=== PATIENT | male | born 1995 | race Caucasian/White ===

== ENCOUNTER 2023-05-10 14:23 | Outpatient (AMB) | payer OTHER, SELFPAY ==
--- NOTE | 2023-05-10 14:29 | MHC.PC.OV ---
Vital Signs 05/10/23 14:30 Height 6 ft 1 in Weight 154 lb 4 oz BMI 20.3 BP 108/60 Blood Pressure Location Rt brachial Position Sitting Pulse 80 Pulse Source Pulse Oximeter Pulse Oximetry (%) 98 Oxygen Delivery Method Room Air Intake Visit Reasons: Est Care Intake Note: Pt is here to est care Allergies No Known Allergies Allergy (Verified 05/10/23 14:44) Medication List - Last Reconciled 05/10/23 by MINDY Bhardwaj No Known Home Meds Tobacco use date assessed: 05/10/23 Dental Screening Dental Screen Date: 05/10/23 Did you have a dental visit in the last 12 months?: Yes Did you have a dental problem in the last 6 months where you did not have access to dental care?: No Was dental information given to patient?: Patient has dentist HPI HPI Comments History of Present Illness Details Patient is a 27-year-old male who I am meeting for the 1st time. Patient has signed a release to get records from materials management manager. His last Tdap was 11/06. Patient has complaint of intermittent insomnia over the past year. Patient states that he works the restaurant shift supervisor for a [employer] and often has difficulty getting to sleep and staying asleep. States that he does have some anxiety but feels right now is under control. Denies SI/HI. Will give patient hydroxyzine to try when he is not working the following day. Will draw fasting labs. PFSH Family History Father Congestive heart failure Social History Housing: House Patient Tobacco Use Status: Former Tobacco user e-Cigarette/Vaping Use: Currently Using Second Hand Smoke Exposure: No service: No Current occupational status: employed Current occupation: [employer] Current occupational exposures/hazards: Yes Cognitive needs: No Hearing needs: No Vision needs: No Questionnaire PHQ-9 Over the last 2 weeks, how often have you been bothered by any of the following problems? 1. Little interest or pleasure in doing things: several days 2. Feeling down, depressed, or hopeless: several days 3. Trouble falling or staying asleep, or sleeping too much: more than half the days 4. Feeling tired or having little energy: several days 5. Poor appetite or overeating: several days 6. Feeling bad about yourself - or that you are a failure or have let yourself or your family down: not at all 7. Trouble concentrating on things, such as reading the newspaper or watching television: not at all 8. Moving or speaking so slowly that other people could have noticed. Or the opposite - being so fidgety or restless that you have been moving around a lot more than usual: not at all 9. Thoughts that you would be better off or of hurting yourself in some way: not at all Total score: 6 Depression Screening Interpretation: Negative Depression Screening Done: Yes Source: Developed by Drs. Sarkis Metz, Lata Phan, Cal Dang and colleagues, with an educational dominguez from [employer]. Thrive Questionnaire Date Thrive assessed: 05/10/23 I am a: Patient What is your living situation today?: I have a steady place to live Within the past 12 months, did the food you bought not last and you didn't have the money to get more?: Never true Within the past 12 months, did you worry whether your food would run out before you got money to buy more?: Never true Do you have trouble paying for medicines?: No Do you have trouble getting transportation to medical appointments?: No Do you have trouble paying your heating and electricity bill?: No Do you have trouble taking care of your child, family member or friend?: No Do you have trouble with day-to-day activities such as bathing, preparing meals, shopping, managing finances, etc.?: No Are you currently unemployed and looking for a job?: No Are you interested in more education?: Yes THRIVE Score: 0 AUDIT C Alcohol Use Questionnaire (AUDIT-C) 1. How often do you have a drink containing alcohol?: 2-3 times a week 2. How many drinks containing alcohol do you have on a typical day when you are drinking?: 3 or 4 3. How often do you have six or more drinks on one occasion?: Less than monthly Total Score: 5 FLEX-7 AMB Questionnaire FLEX-7 Date FLEX - 7 assessed: 05/10/23 Feeling nervous, anxious, or on edge: 1 = Several days Not being able to stop or control worryin = Not at all Worrying too much about different things: 0 = Not at all Trouble relaxin = More than half the days Being so restless that it is hard to sit still: 0 = Not at all Becoming easily annoyed or irritable: 1 = Several days Feeling afraid as if something awful might happen: 0 = Not at all Total FLEX-7 score (0-4 normal; 5-9 mild; 10-14 moderate; 15-21 severe): 4 Source: Developed by Drs. Sarkis Metz, Lata Phan, Cal Dang and colleagues, with an educational dominguez from [employer]. FLEX-7 Assessment Billing FLEX-7 Assessment Tool: FLEX-7 Assessment 08515 Review of Systems Const Details: Constitutional : No Weight loss, No Fever, No Chills, No Fatigue, No Malaise ENT/Mouth : No sore throat, No Rhinorrhea Eyes: No Eye Pain, No Swelling, No Redness Cardiovascular : No Chest Pain, No SOB, No Dyspnea on Exertion, No Orthopnea, No Edema, No Palpitations Respiratory : No Cough, No Sputum, No Wheezing Gastrointestinal : No Nausea, No Vomiting, No Diarrhea, No Constipation, No abdominal Pain, No Hematochezia, No Melena Genitourinary : No Dysuria, No Urinary Frequency, No Hematuria, Musculoskeletal : No joint pain, No Myalgias, No Joint Swelling Skin : No Skin Lesions, No rash Neuro : No Weakness, No Numbness, No Dizziness, No Headache. Admits some insomnia. Psych : Admits little Anxiety/Panic, No Depression Heme/Lymph: No Bruising, No Bleeding,No Lymphadenopathy Endocrine : No Polyuria, No Polydipsia All other systems reviewed and are negative Physical exam (Primary Care) Vital Signs: Last Vital Signs Pulse 80 05/10/23 14:30 BP 108/60 05/10/23 14:30 Pulse Ox 98 05/10/23 14:30 Oxygen Delivery Method Room Air 05/10/23 14:30 Care Plan Goal for BP management: Vital signs reviewed stable. BMI result Body Mass Index 20.3 Tobacco/Smoking Status: Tobacco use Status Tobacco use date assessed 05/10/23 05/10/23 14:36 Patient Tobacco Use Status Former Tobacco user 05/10/23 14:36 e-Cigarette/Vaping Use Currently Using 05/10/23 14:36 Depression Screening Interpretation: Negative Const Other: Appearance: Alert.? Oriented X3.? No acute distress.? Head: Normocephalic, atraumatic, no step-offs or deformities Eyes: Pupils equal, round and reactive to light.? ENT: Pharynx normal.? Neck: Normal inspection.? Neck supple.? CVS: Normal heart rate and rhythm.? Pulses normal.? Respiratory: No respiratory distress.? Breath sounds normal.? Neuro: Oriented X 3.? No motor deficit.? No sensory deficit. CN 2-12 intact Assessment and Plan Assessment & Plan (1) Insomnia: Comment: Patient will be given hydroxyzine to be taken as directed Code(s): G47.00 - Insomnia, unspecified Qualifiers: Insomnia type: unspecified Qualified Code(s): G47.00 - Insomnia, unspecified Plan: Take your medications as prescribed. If you were prescribed antibiotics today, it is important that you take your medication to their entirety, do not skip any doses, do not finish them early. Follow-up with your primary care provider this week. Return to the emergency department with new or worsening symptoms. Such as fevers, chills, chest pain, shortness of breath, nausea, vomiting, dizziness, headache, vision changes, lethargy In case of emergency call 911 Plan Draw fasting labs and follow-up in 4 months. For physical exam Orders: Orders Comprehensive Met. Panel Today Z91.89 - Other specified personal risk factors, not elsewhere classified Vitamin D 25-OH (D2 and D3) Today Z13.21 - Encounter for screening for nutritional disorder TSH reflex Free T4 Today Z13.29 - Encounter for screening for other suspected endocrine disorder Lipid Panel Today Z13.220 - Encounter for screening for lipoid disorders Complete Blood Count Auto Diff Today Z13.0 - Encounter for screening for diseases of the blood and blood-forming organs and certain disorders involving the immune mechanism Vitamin B6 Today Z13.21 - Encounter for screening for nutritional disorder Vitamin B12 Today Z13.21 - Encounter for screening for nutritional disorder UA CC w/rflx Micro + Cult Today Z13.89 - Encounter for screening for other disorder Medications: New hydroxyzine HCl 10 mg PO BEDTIME PRN 20 tabs 0RF insomnia Coding Level of Care Code New Pt Level 3 (41581) Diagnoses Insomnia, unspecified type G47.00 Insomnia type: unspecified Additional Codes FLEX-7 Assessment Billing - FLEX-7 Assessment Tool: FLEX-7 Assessment 11665 ([id number]) Time Spent (min) 25
[2023-05-10 14:30] VITALS: BP 108/60; PULSE 80; O2SAT 98; BMI 20.3
== END 2023-05-10 15:57 | disposition home or self-care (01) ==
PROVIDERS: Visit Provider Nurse Practitioner Primary Care
DX: G47.00 Insomnia, unspecified (principal)
CPT/HCPCS: 99203

== ENCOUNTER 2023-11-29 08:08 | Outpatient (AMB) | payer OTHER, SELFPAY ==
--- NOTE | 2023-11-29 08:09 | A.OFFPC_ITS ---
Vital Signs 11/29/23 08:10 Height 6 ft 1 in Weight 153 lb BMI 20.2 BP 120/70 Blood Pressure Location Rt brachial Position Sitting Pulse 70 Pulse Source Pulse Oximeter Pulse Oximetry (%) 99 Intake Visit Reasons: PE transfer of care from [facility] Intake Note: pt is here for est care, transfer from [facility] Harvest Supervisor Required: No Allergies No Known Allergies Allergy (Verified 11/29/23 08:10) Medication List - Last Reconciled 11/29/23 by MICHELLE Muse No Known Home Meds Tobacco use date assessed: 05/10/23 Dental Screening Dental Screen Date: 05/10/23 HPI PE transfer of care from [facility] HPI Details Pt is here for a PE. Will order labs. [facility] Surgical History No pertinent past surgical history Family History Father Congestive heart failure Social History Housing: House Patient Tobacco Use Status: Former Tobacco user e-Cigarette/Vaping Use: Currently Using Second Hand Smoke Exposure: No service: No Current occupational status: employed Current occupation: [employer] Current occupational exposures/hazards: Yes Cognitive needs: No Hearing needs: No Vision needs: No Questionnaire PHQ-9 Over the last 2 weeks, how often have you been bothered by any of the following problems? 1. Little interest or pleasure in doing things: more than half the days 2. Feeling down, depressed, or hopeless: several days 3. Trouble falling or staying asleep, or sleeping too much: several days 4. Feeling tired or having little energy: more than half the days 5. Poor appetite or overeating: not at all 6. Feeling bad about yourself - or that you are a failure or have let yourself or your family down: not at all 7. Trouble concentrating on things, such as reading the newspaper or watching television: not at all 8. Moving or speaking so slowly that other people could have noticed. Or the opposite - being so fidgety or restless that you have been moving around a lot more than usual: not at all 9. Thoughts that you would be better off or of hurting yourself in some way: not at all Total score: 6 Depression Screening Interpretation: Negative Depression Screening Done: Yes [id number] - PHQ-9 Billing: Yes Source: Developed by Drs. Sarkis Metz, Lata Phan, Cal Dang and colleagues, with an educational dominguez from [employer]. Thrive Questionnaire Date Thrive assessed: 11/29/23 I am a: Patient What is your living situation today?: I have a steady place to live Within the past 12 months, did the food you bought not last and you didn't have the money to get more?: Never true Within the past 12 months, did you worry whether your food would run out before you got money to buy more?: Never true Do you have trouble paying for medicines?: No Do you have trouble getting transportation to medical appointments?: No Do you have trouble paying your heating and electricity bill?: No Do you have trouble taking care of your child, family member or friend?: No Do you have trouble with day-to-day activities such as bathing, preparing meals, shopping, managing finances, etc.?: Yes Are you interested in more education?: Yes Please select the resources that you would like help with: None Currently or been in a relationship where the following occur: I choose not to answer THRIVE Score: 0 AUDIT C Alcohol Use Questionnaire (AUDIT-C) 1. How often do you have a drink containing alcohol?: 2-3 times a week 2. How many drinks containing alcohol do you have on a typical day when you are drinking?: 3 or 4 3. How often do you have six or more drinks on one occasion?: Monthly Total Score: 6 Score Reviewed/Action Taken: Yes FLEX-7 AMB Questionnaire FLEX-7 Date FLEX - 7 assessed: 11/29/23 Feeling nervous, anxious, or on edge: 1 = Several days Not being able to stop or control worryin = More than half the days Worrying too much about different things: 2 = More than half the days Trouble relaxin = More than half the days Being so restless that it is hard to sit still: 2 = More than half the days Becoming easily annoyed or irritable: 1 = Several days Feeling afraid as if something awful might happen: 0 = Not at all Total FLEX-7 score (0-4 normal; 5-9 mild; 10-14 moderate; 15-21 severe): 10 Source: Developed by Drs. Sarkis Metz, Lata Phan, Cal Dang and colleagues, with an educational dominguez from [employer]. FLEX-7 Assessment Billing FLEX-7 Assessment Tool: FLEX-7 Assessment 78803 Review of Systems Const Denies chills and Denies fever(s) Eyes Denies blurry vision ENT Denies vertigo, Denies dizziness and Denies sore throat Card Denies chest pain at rest, Denies chest pain with activity, Denies diaphoresis, Denies dyspnea and Denies dyspnea on exertion Resp Denies cough, Denies dyspnea, Denies dyspnea on exertion and Denies wheezing GI Denies abdominal pain, Denies melena, Denies hematochezia, Denies constipation, Denies diarrhea and Denies loose stools Denies hematuria Musc Denies numbness and Denies tingling Skin/Breast Denies lesions Neuro Denies vertigo, Denies dizziness, Denies numbness and Denies tingling Psych Denies anxiety, Denies depression, Denies homicidal ideation, Denies suicidal ideation and Denies other (substance abuse) Aller/Immun Denies wheezing Physical exam (Primary Care) Vital Signs: Last Vital Signs Pulse 70 11/29/23 08:10 BP 120/70 11/29/23 08:10 Pulse Ox 99 11/29/23 08:10 BMI result Body Mass Index 20.2 Tobacco/Smoking Status: Tobacco use Status Tobacco use date assessed 05/10/23 11/29/23 08:14 Patient Tobacco Use Status Former Tobacco user 11/29/23 08:14 e-Cigarette/Vaping Use Currently Using 11/29/23 08:14 PHQ-9: PHQ-9 Score PHQ-9: Total score 6 11/29/23 08:14 Depression Screening Interpretation: Negative Thrive Assessment: Date of Thrive Assessment Date Thrive assessed 11/29/23 11/29/23 08:14 Currently or been in a relationship where the following occur: I choose not to answer Const General: cooperative Nutritional Appearance: well nourished Orientation/consciousness: patient oriented x3 HENMT Head: Yes normal to inspection, Yes normocephalic and Yes atraumatic Ears: TM's normal bilaterally Eyes General: appearance normal, both eyes and all related structures Alignment and Position: alignment normal and position normal Neck Neck: Yes normal visual inspection, Yes no lymphadenopathy and Yes supple Resp Effort & Inspection: normal respiratory effort Auscultation: clear to auscultation bilaterally Cardio Rate: regular rate Rhythm: regular rhythm Heart sounds: S1 normal heart sound present, S2 normal heart sound present and no murmurs GI Palpation (GI): Soft to palpation and nontender Auscultation: normal bowel sounds Male General Exam: Yes normal external exam Penis: normal penis Scrotum: scrotum normal, testes descended bilaterally and no inguinal hernias Testes: no testicular mass Skin Rashes: no rashes Neuro General: patient oriented x3, moves all extremities, no focal motor deficits and deep tendon reflexes 2+ bilaterally Romberg Test: Negative Psych Appearance: grossly normal Mental Status: mental status grossly normal Speech and movement: Normal speech and movement present Affect: normal affect Attitude: cooperative Thought process: Normal thought process present Thought content: Normal thought content present Insight: Good insight present (Psych) Judgement: Good judgement present (Psych) Coding Level of Care Code New Pt Prev Care 18-39yr([id number] Diagnoses Physical exam Z00.00 Additional Codes FLEX-7 Assessment Billing - FLEX-7 Assessment Tool: FLEX-7 Assessment 89336 ([id number]) Assessment & Plan Assessment & Plan (1) Physical exam: Code(s): Z.00 - Encounter for general adult medical examination without abnormal findings Category: Medical Plan: Labs ordered Plan The patient agreed to the use of a senior medical billing specialist for this encounter. Scribed for MICHELLE Jerome by Traci Grimm senior medical billing specialist, on 11/29/2023 at 08:20 EST. Orders: Orders Complete Blood Count Auto Diff Today Z00.00 - Encounter for general adult medical examination without abnormal findings TSH reflex Free T4 Today Z00.00 - Encounter for general adult medical examination without abnormal findings UA CC w/rflx Micro + Cult Today Z00.00 - Encounter for general adult medical examination without abnormal findings Lipid Panel Today Z00.00 - Encounter for general adult medical examination without abnormal findings Comprehensive [place]. Panel Fast Today Z00.00 - Encounter for general adult medical examination without abnormal findings
[2023-11-29 08:10] VITALS: BP 120/70; PULSE 70; O2SAT 99; BMI 20.2
== END 2023-11-29 08:29 | disposition home or self-care (01) ==
PROVIDERS: PCP Nurse Practitioner Primary Care; Visit Provider Nurse Practitioner Family
DX: Z00.00 Encounter for general adult medical examination without abnormal findings (principal)

== ENCOUNTER → 2023-11-29 08:08 | Outpatient (BNVA) | payer OTHER, SELFPAY | PROVIDERS: PCP Nurse Practitioner Primary Care; Visit Provider Nurse Practitioner Family | DX: Z00.00 Encounter for general adult medical examination without abnormal findings (principal) | CPT/HCPCS: 96127 ==

== ENCOUNTER 2024-12-05 08:36 | Outpatient (AMB) | payer SELFPAY ==
[2024-12-05 08:40] VITALS: BP 110/72; PULSE 71; RESP 16; TEMP 36.8; O2SAT 98; BMI 20.3
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
--- OUTSIDE RECORDS SUMMARY | 2024-12-05 08:55 | XMS_ITS | Encounter Summary ---
Author Organization [facility] Address [address] [place] [address] Phone Care Team Providers Care Straightening Roll Operator Name Role Phone Diego Issa MD Primary Care Provider [phone] Encounter Details Date Type Department Care Team (Late st Contact Info) Description 02/27/2011 Lab EM Family Medicine [address] [place] [address] Family Medicine, Physician [facility] [place] [address] Social History Tobacco Use Types Packs/Day Years Used Date Smoking Tobacco: Never Assessed Sex and Gender Information Value Date Recorded Sex Assigned at Not on file Legal Sex Male 6:31 PM EDT Gender Identity Not on file Sexual Orientation Not on file documented as of this encounter Plan of Treatment Not on file documented as of this encounter Visit Diagnoses Not on filedocumented in this encounter Care Teams Straightening Roll Operator Relationship Specialty Start Date End Date Diego Issa MD [address] [place] [address] Dr Terry JENNIFER [address] PCP - General 06/23/17 documented as of this encounter
--- OUTSIDE RECORDS SUMMARY | 2024-12-05 08:55 | XMS_ITS | Encounter Summary ---
Author Organization [facility] Address [address] [place] [address] Phone Care Team Providers Care Breast Buffer Name Role Phone Diego Issa MD Primary Care Provider [phone] Encounter Details Date Type Department Care Team (Late st Contact Info) Description 09/22/2010 Documentation [facility] [place] Family Medicine [address] [place] [address] Family Medicine, Physician [address] [place] [address] Social History Tobacco Use Types [...] on filedocumented in this encounter Care Teams Breast Buffer Relationship Specialty Start Date End Date Diego Issa MD [address] [place] [address] Dr Terry JENNIFER [address] PCP - General 06/23/17 documented as of this encounter
--- OUTSIDE RECORDS SUMMARY | 2024-12-05 08:55 | XMS_ITS | Encounter Summary ---
Author Organization [facility] Address [address] [place] [address] Phone Care Team Providers Care Health Occupations Teacher Name Role Phone Diego Issa MD Primary Care Provider [phone] Encounter Details Date Type Department Care Team (Late st Contact Info) Description 03/29/[address] [facility] [place] [address] [place] [address] Family Medicine, Physician [facility] [place] [address] Social History Tobacco Use Types Packs/Day Years Used Date Smoking Tobacco: Never Comments:Never Smoker Sex and Gender Information Value Date Recorded Sex Assigned at Not on file Legal Sex Male 6:31 PM EDT Gender Identity Not on file Sexual Orientation Not on file documented as of this encounter Plan of Treatment Not on file documented as of this encounter Visit Diagnoses Not on filedocumented in this encounter Care Teams Health Occupations Teacher Relationship Specialty Start Date End Date Diego Issa MD [facility] Dr Terry JENNIFER [address] PCP - General 06/23/17 documented as of this encounter
--- OUTSIDE RECORDS SUMMARY | 2024-12-05 08:55 | XMS_ITS | Encounter Summary ---
Author Organization [facility] Address [address] [place] [address] Phone Care Team Providers Care Mentally Impaired Teacher Name Role Phone Diego Issa MD Primary Care Provider [phone] Encounter Details Date Type Department Care Team (Late st Contact Info) Description 09/22/2010 Documentation [facility] [place] Family Medicine [address] [place] [address] Family Medicine, Physician [address] [place] [address] Social History Tobacco Use Types [...] on filedocumented in this encounter Care Teams Mentally Impaired Teacher Relationship Specialty Start Date End Date Diego Issa MD [address] [place] [address] Dr Terry JENNIFER [address] PCP - General 06/23/17 documented as of this encounter
--- OUTSIDE RECORDS SUMMARY | 2024-12-05 08:55 | XMS_ITS | Encounter Summary ---
Author Organization [facility] Address [address] [place] [address] Phone Care Team Providers Care Automatic Tire Tester Name Role Phone Diego Issa MD Primary Care Provider [phone] Encounter Details Date Type Department Care Team (Late st Contact Info) Description 05/05/2016 Documentation [facility] [place] Family Medicine [address] [place] [address] Family Medicine, Physician [address] [place], [place] [address] Social History Tobacco Use Types Packs/Day Years [...] on filedocumented in this encounter Care Teams Automatic Tire Tester Relationship Specialty Start Date End Date Diego Issa MD [facility] Dr Terry JENNIFER [address] PCP - General 06/23/17 documented as of this encounter
--- OUTSIDE RECORDS SUMMARY | 2024-12-05 08:55 | XMS_ITS | Encounter Summary ---
Author Organization [facility] Address [address] [place] [address] Phone Care Team Providers Care Parking Lot Attendant Name Role Phone Diego Issa MD Primary Care Provider [phone] Encounter Details Date Type Department Care Team (Late st Contact Info) Description 01/11/2015 Lab EM Family Medicine [address] [place] [address] Family Medicine, Physician [facility] [place] [address] Social History Tobacco Use Types [...] on filedocumented in this encounter Care Teams Parking Lot Attendant Relationship Specialty Start Date End Date Diego Issa MD [facility] Dr Terry JENNIFER [address] PCP - General 06/23/17 documented as of this encounter
--- OUTSIDE RECORDS SUMMARY | 2024-12-05 08:55 | XMS_ITS | Encounter Summary ---
Author Organization [facility] Address [address] [place] [address] Phone Care Team Providers Care Assistant Counsel Name Role Phone Diego Issa MD Primary Care Provider [phone] Encounter Details Date Type Department Care Team (Late st Contact Info) Description 07/16/[address] [facility] [place] Family Medicine [address] [place] [address] Family Medicine, Physician [facility] [place] [address] Social History Tobacco Use Types [...] on filedocumented in this encounter Care Teams Assistant Counsel Relationship Specialty Start Date End Date Diego Issa MD [facility] [address] Terry JENNIFER [address] PCP - General 06/23/17 documented as of this encounter
--- OUTSIDE RECORDS SUMMARY | 2024-12-05 08:55 | XMS_ITS | Encounter Summary ---
Author Organization [facility] Address [address] [place] [address] Phone Care Team Providers Care Gas Appliance Servicer Helper Name Role Phone Diego Issa MD Primary Care Provider [phone] Encounter Details Date Type Department Care Team (Late st Contact Info) Description 01/11/2015 Medication Management [facility] [place] [address] [place] [address] Family Medicine, Physician [place] [address] Social History Tobacco Use Types [...] on filedocumented in this encounter Care Teams Gas Appliance Servicer Helper Relationship Specialty Start Date End Date Diego Issa MD [facility] Dr Terry JENNIFER [address] PCP - General 06/23/17 documented as of this encounter
--- OUTSIDE RECORDS SUMMARY | 2024-12-05 08:55 | XMS_ITS | Encounter Summary ---
Author Organization [facility] Address [address] [place] [address] Phone Care Team Providers Care Deputy Building Guard Name Role Phone Diego Issa MD Primary Care Provider [phone] Encounter Details Date Type Department Care Team (Late st Contact Info) Description 01/08/2014 Medication [place] [facility] [place] [facility] [place] [address] Family Medicine, Physician [facility] [place] [address] Social History Tobacco Use Types [...] on filedocumented in this encounter Care Teams Deputy Building Guard Relationship Specialty Start Date End Date Diego Issa MD [facility] Dr Terry JENNIFER [address] PCP - General 06/23/17 documented as of this encounter
--- OUTSIDE RECORDS SUMMARY | 2024-12-05 08:55 | XMS_ITS | Encounter Summary ---
Author Organization [facility] Address [address] [place] [address] Phone Care Team Providers Care Cargo And Container Inspector Name Role Phone Diego Issa MD Primary Care Provider [phone] Encounter Details Date Type Department Care Team (Late st Contact Info) Description 01/11/2015 Documentation [facility] [place] Family Medicine [address] [place] [address] Family Medicine, Physician [address] [place], [place] [id number] Social History Tobacco Use Types Packs/Day Years [...] on filedocumented in this encounter Care Teams Cargo And Container Inspector Relationship Specialty Start Date End Date Diego Issa MD [facility] [address] Terry JENNIFER [address] PCP - General 06/23/17 documented as of this encounter
--- OUTSIDE RECORDS SUMMARY | 2024-12-05 08:55 | XMS_ITS | Encounter Summary ---
Author Organization [facility] Address [address] [place] [address] Phone Care Team Providers Care Enrollment Specialist Name Role Phone Diego Issa MD Primary Care Provider [phone] Encounter Details Date Type Department Care Team (Late st Contact Info) Description 09/22/2010 Documentation [facility] [place] Family Medicine [address] [place] [address] Family Medicine, Physician [address] [place] [address] Social History Tobacco Use Types [...] on filedocumented in this encounter Care Teams Enrollment Specialist Relationship Specialty Start Date End Date Diego Issa MD [address] [place] [address] Dr Terry JENNIFER [address] PCP - General 06/23/17 documented as of this encounter
--- OUTSIDE RECORDS SUMMARY | 2024-12-05 08:55 | XMS_ITS | Encounter Summary ---
Author Organization [facility] Address [address] [place] [address] Phone Care Team Providers Care It Recruiter Name Role Phone Diego Issa MD Primary Care Provider [phone] Encounter Details Date Type Department Care Team (Late st Contact Info) Description 07/01/2011 Consult EM Family Medicine [address] [place] [address] Family Medicine, Physician [facility] [place] [address] Social History Tobacco Use Types [...] on filedocumented in this encounter Care Teams It Recruiter Relationship Specialty Start Date End Date iDego Issa MD [facility]6 [facility] Dr Terry JENNIFER [address] PCP - General 06/23/17 documented as of this encounter
--- OUTSIDE RECORDS SUMMARY | 2024-12-05 08:55 | XMS_ITS | Encounter Summary ---
Author Organization [facility] Address [address] [place] [address] Phone Care Team Providers Care Supervisor Cutting And Boning Name Role Phone Diego Issa MD Primary Care Provider [phone] Encounter Details Date Type Department Care Team (Late st Contact Info) Description 09/22/2010 Documentation [facility] [place] Family Medicine [address] [place] [address] Family Medicine, Physician [address] [place] [address] Social History Tobacco Use Types [...] on filedocumented in this encounter Care Teams Supervisor Cutting And Boning Relationship Specialty Start Date End Date Diego Issa MD [address] [place] [address] Dr Terry JENNIFER [address] PCP - General 06/23/17 documented as of this encounter
--- OUTSIDE RECORDS SUMMARY | 2024-12-05 08:55 | XMS_ITS | Encounter Summary ---
Author Organization [facility] Address [address] [place] [address] Phone Care Team Providers Care Banquet Food Server Name Role Phone Diego Issa MD Primary Care Provider [phone] Encounter Details Date Type Department Care Team (Late st Contact Info) Description 09/22/2010 Documentation [facility] [place] [address] [place] [address] Family Medicine, Physician [address] [place] [address] Social History Tobacco Use Types [...] on filedocumented in this encounter Care Teams Banquet Food Server Relationship Specialty Start Date End Date Diego Issa MD [address] [place] [address] Dr Terry JENNIFER [address] PCP - General 06/23/17 documented as of this encounter
--- OUTSIDE RECORDS SUMMARY | 2024-12-05 08:55 | XMS_ITS | Encounter Summary ---
Author Organization [facility] Address [address] [place] [address] Phone Care Team Providers Care Industrial Waste Treatment Technician Name Role Phone Diego Issa MD Primary Care Provider [phone] Encounter Details Date Type Department Care Team (Late st Contact Info) Description 01/15/2012 Documentation [facility] [place] Family Medicine [address] [place] [address] Family Medicine, Physician [address] [place], [place] [id number] Social History Tobacco Use Types Packs/Day Years [...] on filedocumented in this encounter Care Teams Industrial Waste Treatment Technician Relationship Specialty Start Date End Date Diego Issa MD [facility]6 [facility] Dr Terry JENNIFER [address] PCP - General 06/23/17 documented as of this encounter
--- OUTSIDE RECORDS SUMMARY | 2024-12-05 08:55 | XMS_ITS | Encounter Summary ---
Author Organization [facility] Address [address] [place] [address] Phone Care Team Providers Care Senior Java Ui Developer Name Role Phone Diego Issa MD Primary Care Provider [phone] Encounter Details Date Type Department Care Team (Late st Contact Info) Description 09/22/2010 Documentation [facility] [place] [address] [place] [address] Family Medicine, Physician [address] [place] [address] Social History Tobacco Use Types [...] on filedocumented in this encounter Care Teams Senior Java Ui Developer Relationship Specialty Start Date End Date Diego Issa MD [address] [place] [address] Dr Terry JENNIFER [address] PCP - General 06/23/17 documented as of this encounter
--- OUTSIDE RECORDS SUMMARY | 2024-12-05 08:55 | XMS_ITS | Encounter Summary ---
Author Organization [facility] Address [address] [place] [address] Phone Care Team Providers Care Occupational Therapy Teacher Name Role Phone Diego Issa MD Primary Care Provider [phone] Encounter Details Date Type Department Care Team (Late st Contact Info) Description 03/29/2012 Documentation [facility] [place] [address] [place] [address] Family Medicine, Physician [address] [place], [place] [address] Social History Tobacco Use Types Packs/Day Years [...] on filedocumented in this encounter Care Teams Occupational Therapy Teacher Relationship Specialty Start Date End Date Diego Issa MD [facility]6 [facility] Dr Terry JENNIFER [address] PCP - General 06/23/17 documented as of this encounter
--- OUTSIDE RECORDS SUMMARY | 2024-12-05 08:55 | XMS_ITS | Encounter Summary ---
Author Organization [facility] Address [address] [place] [address] Phone Care Team Providers Care Program Writer Name Role Phone Diego Issa MD Primary Care Provider [phone] Encounter Details Date Type Department Care Team (Late st Contact Info) Description 09/22/2010 Documentation [facility] [place] Family Medicine [address] [place] [address] Family Medicine, Physician [address] [place] [address] Social History Tobacco Use Types [...] on filedocumented in this encounter Care Teams Program Writer Relationship Specialty Start Date End Date Diego Issa MD [address] [place] [address] Dr Terry JENNIFER [address] PCP - General 06/23/17 documented as of this encounter
--- OUTSIDE RECORDS SUMMARY | 2024-12-05 08:55 | XMS_ITS | Encounter Summary ---
Author Organization [facility] Address [address] [place] [address] Phone Care Team Providers Care Clay Dry Press Operator Name Role Phone Diego Issa MD Primary Care Provider [phone] Encounter Details Date Type Department Care Team (Late st Contact Info) Description 07/02/2011 Lab EM Family Medicine [address] [place] [address] Family Medicine, Physician [facility] [place] [address] Social History Tobacco Use Types [...] on filedocumented in this encounter Care Teams Clay Dry Press Operator Relationship Specialty Start Date End Date Diego Issa MD [facility]6 [facility] Dr Terry [place] [address] PCP - General 06/23/17 documented as of this encounter
--- OUTSIDE RECORDS SUMMARY | 2024-12-05 08:55 | XMS_ITS | Encounter Summary ---
Author Organization [facility] Address [address] [place] [address] Phone Care Team Providers Care Chinese Language Professor Name Role Phone Diego Issa MD Primary Care Provider [phone] Encounter Details Date Type Department Care Team (Late st Contact Info) Description 03/31/2012 Lab EM Family Medicine [address] [place] [address] Family Medicine, Physician [facility] [address] Social History Tobacco Use Types [...] on filedocumented in this encounter Care Teams Chinese Language Professor Relationship Specialty Start Date End Date Diego Issa MD [facility] [facility] [address] Terry [place] [address] PCP - General 06/23/17 documented as of this encounter
--- OUTSIDE RECORDS SUMMARY | 2024-12-05 08:55 | XMS_ITS | Encounter Summary ---
Author Organization [facility] Address [address] [place] [address] Phone Care Team Providers Care Word Processing Supervisor Name Role Phone Diego Issa MD Primary Care Provider [phone] Encounter Details Date Type Department Care Team (Late st Contact Info) Description 01/10/2013 Lab EM Family Medicine [address] [place] [address] Family Medicine, Physician [facility] [place] [address] Social History Tobacco Use Types [...] on filedocumented in this encounter Care Teams Word Processing Supervisor Relationship Specialty Start Date End Date Diego Issa MD [facility]6 [facility] Dr Terry [place] [address] PCP - General 06/23/17 documented as of this encounter
--- OUTSIDE RECORDS SUMMARY | 2024-12-05 08:55 | XMS_ITS | Encounter Summary ---
Author Organization [facility] Address [address] [place] [address] Phone Care Team Providers Care Postal Clerk Name Role Phone Diego Issa MD Primary Care Provider [phone] Encounter Details Date Type Department Care Team (Late st Contact Info) Description 01/09/2014 Documentation [facility] [place] Family Medicine [address] [place] [address] Family Medicine, Physician [address] [place] [id number] Social History Tobacco Use Types Packs/Day Years [...] on filedocumented in this encounter Care Teams Postal Clerk Relationship Specialty Start Date End Date Diego Issa MD [facility] [address] Terry [place] [address] PCP - General 06/23/17 documented as of this encounter
--- OUTSIDE RECORDS SUMMARY | 2024-12-05 08:55 | XMS_ITS | Encounter Summary ---
Author Organization [facility] Address [address] [place] [address] Phone Care Team Providers Care Cement Despatch Operator Name Role Phone Diego Issa MD Primary Care Provider [phone] Encounter Details Date Type Department Care Team (Late st Contact Info) Description 01/09/2013 Documentation [facility] [place] [address] [place] [address] Family Medicine, Physician [address] [place] [id number] Social History Tobacco Use Types Packs/Day Years [...] on filedocumented in this encounter Care Teams Cement Despatch Operator Relationship Specialty Start Date End Date Diego Issa MD [facility]6 [facility] [address] Terry [place] [address] PCP - General 06/23/17 documented as of this encounter
--- OUTSIDE RECORDS SUMMARY | 2024-12-05 08:55 | XMS_ITS ---
Author Name [facility] Organization Unknown Care Team Organization Name Specialty Phone Email Start Date End Da te [facility] [place] [facility] Termed, PROVIDER Primary Care 01/27/202309/15 [facility] Precious Brar Primary Care 02/23/202209/15
--- OUTSIDE RECORDS SUMMARY | 2024-12-05 08:55 | XMS_ITS | Clinical Summary ---
Author Organization [facility] Address [address] [place] [address] Phone Care Team Providers Care Clerk Checker Name Role Phone Diego Issa MD Primary Care Provider [phone] Immunizations Immunization Administration Dates Next Due DTaP 5 05/21/2003, 0,06/20/1998,04/24,02/25/1998 HPV Vaccine 9 Valent 05/05/2016 HPV, Quadrivalent 01/08/2014 Hep B, ped/adol 06/20/1998,02/25/1998,1997 Hib (PRP-T) 03/28/1999,199 9,04/24/1998,02/25 IPV 05/21/2003, 0,04/24/1998,02/25 Influenza, injectable, quadr ivalent, preservative free 01/08/2015,01/08/2014 Influenza, intranasal, trivalent 09/22/2010 MMR 05/21/2003,12/25/1998 Meningococcal Conj (Menactra) MCV4P 05/05/2016,0 09/16/2009 Tdap 09/16/2009 Social History Tobacco Use Types Packs/Day Years Used Date Smoking Tobacco: Never Comments:Never Smoker Sex and Gender Information Value Date Recorded Sex Assigned at Not on file Legal Sex Male 6:31 PM EDT Gender Identity Not on file Sexual Orientation Not on file Last Filed Vital Signs Vital Sign Reading Time Taken Comments Blood Pressure - - Pulse 76 01/08/2015 3:36 PM EST Temperature 36.5 C (97.7 F) 05/05/2016 11:02 AM EDT Respiratory Rate - - Oxygen Saturation - - Inhaled Oxygen Concentration - - Weight 73 kg (161 lb) 05/05/2016 11:02 AM EDT Height 182.2 cm (5' 11.75 ) 05/05/2016 11:02 AM EDT Body Mass Index 21.99 05/05/2016 11:02 AM EDT Plan of Treatment Health Maintenance Due Date Last Done Comments Varicella Vaccines (1 of 2 - 13+ 2-dose series) 2010 HPV Vaccines (3 - Male 3-dose series) 07/28/2016 05/05/2016, 01/08/2014 DTaP,Tdap,and Td Vaccines (7 - Td or Tdap) 09/17/2019 09/16/2009, 05/21/2003, 06/27/1999, Additional history exists Influenza Vaccines (#1) 2024 01/09/20 15, 01/08/2014, 09/22/2010 COVID-19 Vaccine ( season) 2024 Hepatitis B Vaccines Completed 06/20/1998, 02/25/1998, 1997 HIB Vaccines Completed 03/28/1999, 07/1998, 04/24/1998, Additional history exists IPV Vaccines Completed 05/21/2003, 06/15, 04/24/1998, Additional history exists MMR Vaccines Completed 05/21/2003, 12/25/1998 Meningococcal Vaccine Completed 05/05/2016, 010 Hepatitis A Vaccines Aged Out No long er eligible based on patient's age to complete this topic Men B Vaccine Aged Out No longer elig ible based on patient's age to complete this topic Pneumococcal Vaccine Aged Out No long er eligible based on patient's age to complete this topic Care Teams Clerk Checker Relationship Specialty Start Date End Date Diego Issa MD [facility]6 [facility] [place] [address] PCP - General 06/23/17
--- OUTSIDE RECORDS SUMMARY | 2024-12-05 08:55 | XMS_ITS | Encounter Summary ---
Author Organization [facility] Address [address] [place] [address] Phone Care Team Providers Care Combine Inspector Name Role Phone Diego Issa MD Primary Care Provider Encounter Details Date Type Department Care Team (Late st Contact Info) Description 09/22/2010 Documentation [facility] [place] Family Medicine [address] [place] [address] Family Medicine, Physician [address] [place] [address] Social History Tobacco Use Types [...] on filedocumented in this encounter Care Teams Combine Inspector Relationship Specialty Start Date End Date Diego Issa MD [address] [place] [address] Dr Terry [place]ER [address] PCP - General 06/23/17 documented as of this encounter
--- OUTSIDE RECORDS SUMMARY | 2024-12-05 08:55 | XMS_ITS | Encounter Summary ---
Author Organization [facility] Address [address] [place] [address] Phone Care Team Providers Care Roughener Name Role Phone Diego Issa MD Primary Care Provider [phone] Encounter Details Date Type Department Care Team (Late st Contact Info) Description 03/30/2012 Consult EM Family Medicine [address] [place] [address] Family Medicine, Physician [facility] [place] [address] Social History Tobacco Use Types [...] on filedocumented in this encounter Care Teams Roughener Relationship Specialty Start Date End Date Diego Issa MD [facility]6 [facility] [address] Terry [place] [address] PCP - General 06/23/17 documented as of this encounter
--- OUTSIDE RECORDS SUMMARY | 2024-12-05 08:55 | XMS_ITS | Encounter Summary ---
Author Organization [facility] Address [address] [place] [address] Phone Care Team Providers Care Book Salesman Name Role Phone Diego Issa MD Primary Care Provider [phone] Encounter Details Date Type Department Care Team (Late st Contact Info) Description 09/22/2010 Conversion Encounter [facility] [address] [facility] [place] [address] Social History Tobacco Use Types Packs/Day Years [...] on filedocumented in this encounter Care Teams Book Salesman Relationship Specialty Start Date End Date Diego Issa MD [address] [place] [address] [place] [address] PCP - General 06/23/17 documented as of this encounter
--- OUTSIDE RECORDS SUMMARY | 2024-12-05 08:55 | XMS_ITS | Encounter Summary ---
Author Organization [facility] Address [address] [place] [address] Phone Care Team Providers Care Closet Organizer Name Role Phone Diego Issa MD Primary Care Provider [phone] Encounter Details Date Type Department Care Team (Late st Contact Info) Description 01/09/2014 Lab EM Family Medicine [address] [place] [address] Family Medicine, Physician [facility] [place] [address] Social History Tobacco Use Types [...] on filedocumented in this encounter Care Teams Closet Organizer Relationship Specialty Start Date End Date Diego Issa MD [facility]6 [facility] [address] Terry [place]ENN[place] [address] PCP - General 06/23/17 documented as of this encounter
--- OUTSIDE RECORDS SUMMARY | 2024-12-05 08:56 | XMS_ITS | Encounter Summary ---
Author Organization [facility] Address [address] [place] [address] Phone Care Team Providers Care Top Lift Cutter Name Role Phone Diego Issa MD Primary Care Provider [phone] Encounter Details Date Type Department Care Team (Late st Contact Info) Description 05/10/2014 Documentation [facility] [place] Family Medicine [address] [place] [address] Family Medicine, Physician [address] [place], [place] [address] Social History Tobacco Use Types Packs/Day Years [...] on filedocumented in this encounter Care Teams Top Lift Cutter Relationship Specialty Start Date End Date Diego Issa MD [facility]6 [facility] [address] Terry [place] [address] PCP - General 06/23/17 documented as of this encounter
--- OUTSIDE RECORDS SUMMARY | 2024-12-05 08:56 | XMS_ITS | Encounter Summary ---
Author Organization [facility] Address [address] [place] [address] Phone Care Team Providers Care Finishing Range Feeder Name Role Phone Diego Issa MD Primary Care Provider [phone] Encounter Details Date Type Department Care Team (Late st Contact Info) Description 09/22/2010 Documentation [facility] [place] [address] [place] [address] Family Medicine, Physician [address] [place] [address] Social History Tobacco Use Types [...] on filedocumented in this encounter Care Teams Finishing Range Feeder Relationship Specialty Start Date End Date Diego Issa MD [address] [place] [address] Dr Terry [place]ER [address] PCP - General 06/23/17 documented as of this encounter
--- OUTSIDE RECORDS SUMMARY | 2024-12-05 08:56 | XMS_ITS | Encounter Summary ---
Author Organization [facility] Address [address] [place] [address] Phone Care Team Providers Care Tool Dresser Name Role Phone Diego Issa MD Primary Care Provider [phone] Encounter Details Date Type Department Care Team (Late st Contact Info) Description 09/22/2010 Lab EM Family Medicine [address] [place] [address] Family Medicine, Physician [facility] [address] Social History Tobacco Use Types [...] on filedocumented in this encounter Care Teams Tool Dresser Relationship Specialty Start Date End Date Diego Issa MD [address] [place] [address] Dr Terry [place]ER [address] PCP - General 06/23/17 documented as of this encounter
--- OUTSIDE RECORDS SUMMARY | 2024-12-05 08:56 | XMS_ITS | Encounter Summary ---
Author Organization [facility] Address [address] [place] [address] Phone Care Team Providers Care Lpn Instructor Name Role Phone Diego Issa MD Primary Care Provider [phone] Encounter Details Date Type Department Care Team (Late st Contact Info) Description 09/22/2010 Consult EM Family Medicine [address] [place] [address] Family Medicine, Physician [address] [place] [address] Social History Tobacco Use Types [...] on filedocumented in this encounter Care Teams Lpn Instructor Relationship Specialty Start Date End Date Diego Issa MD [address] [place] [address] Dr Terry [place] [address] PCP - General 06/23/17 documented as of this encounter
--- OUTSIDE RECORDS SUMMARY | 2024-12-05 08:56 | XMS_ITS | Encounter Summary ---
Author Organization [facility] Address [address] [place] [address] Phone Care Team Providers Care Dairy Cattle Farm Worker Name Role Phone Diego Issa MD Primary Care Provider [phone] Encounter Details Date Type Department Care Team (Late st Contact Info) Description 03/28/2014 Documentation [facility] [place] Family Medicine [address] [place] [address] Family Medicine, Physician [address] [place], [place] [address] Social History Tobacco Use Types Packs/Day Years [...] on filedocumented in this encounter Care Teams Dairy Cattle Farm Worker Relationship Specialty Start Date End Date Diego Issa MD [facility]6 [facility] [address] Terry [place]ER [address] PCP - General 06/23/17 documented as of this encounter
== END 2024-12-05 09:48 | disposition home or self-care (01) ==
PROVIDERS: PCP Nurse Practitioner Primary Care; Visit Provider Nurse Practitioner Family
DX: Z00.00 Encounter for general adult medical examination without abnormal findings (principal)

== ENCOUNTER → 2024-12-05 08:36 | Outpatient (BNVA) | payer SELFPAY | PROVIDERS: PCP Nurse Practitioner Primary Care; Visit Provider Nurse Practitioner Family | DX: Z00.00 Encounter for general adult medical examination without abnormal findings (principal); Z13.31 Encounter for screening for depression; Z13.39 Encounter for screening examination for other mental health and behavioral disorders | CPT/HCPCS: 96127; 99395 ==